=== PATIENT | female | born 1985 | race Caucasian/White ===

== ENCOUNTER 2022-01-24 08:27 | Emergency (ER) | payer OTHER ==
[2022-01-24] MEDS ORDERED: IBUPROFEN 400 MG TABLET (FP) PO ONE ×2 (08:40→08:45)
[2022-01-24] MEDS ORDERED: DEXAMETHASONE SOD PHOSPHATE 10 MG/1 ML VIAL IM ONE (08:40)
[2022-01-24] MEDS ORDERED: DEXAMETHASONE SOD PHOSPHATE 10 MG/1 ML VIAL ONE (08:46)
[2022-01-24 10:04] VITALS: BP 123/87; PULSE 81; TEMP 99; BMI 20.3
[2022-01-24 10:47] LABS: THROAT:GRP A STREP NOT DETECTED (NOTDETECTED)
== END 2022-01-24 11:00 | disposition home or self-care (01) ==
LOC: FER 08:27
PROC: 3E0233Z Introduction of Anti-inflammatory into Muscle, Percutaneous Approach (ICD-10-PCS; principal; 2022-01-24)
DX: J02.9 Acute pharyngitis, unspecified (principal)
CPT/HCPCS: 0241U-QW; 87651; 87807; 99284-25; C9803-CS; J1100; U0003; U0005

== ENCOUNTER 2023-02-15 11:19 | Emergency (ER) | payer OTHER ==
[2023-02-15 11:25] VITALS: BP 122/97; PULSE 61; RESP 18; TEMP 98; BMI 24.3
== END 2023-02-15 12:05 | disposition home or self-care (01) ==
LOC: FER 11:19
DX: M54.2 Cervicalgia (principal); R42 Dizziness and giddiness; M62.838 Other muscle spasm; H83.01 Labyrinthitis, right ear
CPT/HCPCS: 99283-25